=== PATIENT | male | born 1940 | race Caucasian/White ===

== ENCOUNTER → 2016-11-28 | Outpatient (CLI) | payer OTHER, BC | LOC: MMPC 10:00 | PROVIDERS: ATTEND Specialist | DX: I48.0 Paroxysmal atrial fibrillation (principal); I10 Essential (primary) hypertension; E78.5 Hyperlipidemia, unspecified; M15.0 Primary generalized (osteo)arthritis | CPT/HCPCS: 99213; G0463 ==

== ENCOUNTER → 2016-12-04 | Outpatient (CLI) | payer OTHER, BC ==
--- NOTE | 2016-12-04 10:07 | EKG ---
[address] [address] Measurements Intervals Mallie Rate: 49 P: 46 SC: 289 QRS: 57 QRSD: 104 T: 68 QT: 487 QTc: 458 Interpretive Statements SINUS BRADYCARDIA WITH FIRST DEGREE AV BLOCK Compared to ECG 04/11/2016 09:17:38 Sinus rhythm no longer present Intraventricular conduction delay no longer present Electronically Signed On 12-04-16 11:45:32 MDT by Artemio Madrigal [id number]
== END ==
LOC: EKG 09:47
PROVIDERS: ATTEND Specialist
DX: I48.0 Paroxysmal atrial fibrillation (principal); I44.0 Atrioventricular block, first degree; R00.1 Bradycardia, unspecified
CPT/HCPCS: 93005; 93010

== ENCOUNTER → 2017-02-19 | Outpatient (CLI) | payer OTHER, BC ==
[2017-02-19 08:58] LABS: BASOPHILS # (AUTO) 0.07 10*3/UL; BASOPHILS % (AUTO) 0.9 % (0-1); EOSINOPHILS # (AUTO) 0.28 10*3/UL; EOSINOPHILS % (AUTO) 3.6 % (0-8); HEMATOCRIT 45.8 % (42.0-52.0); HEMOGLOBIN 16.1 g/dL (14.0-18.0); MEAN CORPUSCULAR HEMOGLOBIN 32.5 PG (27-31); MEAN CORPUSCULAR HGB CONC 35.2 g/dL (33-37); MEAN CORPUSCULAR VOLUME 92.3 FL (80-90); MEAN PLATELET VOLUME 10.5 FL (7.4-12.2); MONOCYTES # (AUTO) 0.62 10*3/UL (0.3-0.8); NEUTROPHILS % (AUTO) 55.3 % (50-80); RED BLOOD COUNT 4.96 10^6/uL (4.70-6.10)
[2017-02-19 09:09] LABS: BUN/CREATININE RATIO 33.75 (6-20); CALCIUM 9.2 mg/dL (8.7-10.7); CHOL/HDL RATIO 3.65 RATIO (0-4.0); SERUM ALBUMIN 4.2 g/dL (3.5-4.8)
[2017-02-19 09:30] LABS: PLATELET MORPHOLOGY COMMENT NORMAL MORPHOLOGY (NORM); RBC MORPHOLOGY COMMENT NORMAL MORPHOLOGY (NORM); WBC MORPHOLOGY COMMENT NORMAL MORPHOLOGY (NORM)
== END ==
LOC: LAB 08:46
PROVIDERS: ATTEND Internal Medicine
DX: R53.83 Other fatigue (principal); E78.5 Hyperlipidemia, unspecified; I10 Essential (primary) hypertension; I48.91 Unspecified atrial fibrillation; Z12.5 Encounter for screening for malignant neoplasm of prostate
CPT/HCPCS: 36415; 80053; 80061; 82550; 84443; 85025; G0103

== ENCOUNTER → 2017-02-21 | Outpatient (CLI) | payer OTHER, BC | LOC: MMPC 11:11 | PROVIDERS: ATTEND Internal Medicine | DX: I48.91 Unspecified atrial fibrillation (principal); I83.93 Asymptomatic varicose veins of bilateral lower extremities; I10 Essential (primary) hypertension; E78.5 Hyperlipidemia, unspecified | CPT/HCPCS: 99214; G0463 ==